=== PATIENT | female | born 1950 | race Two or more races ===

== ENCOUNTER 2023-04-15 05:15 | Day surgery (SDC) | payer OTHER ==
[~2023-04-15] VITALS: Ht 160 cm; Wt 72.6 kg
[~2023-04-15 05:15] MED LIST: GLIPIZIDE2.5 MG; LEXAPRO5 MG; LIPITOR20 MG; METFORMIN HCL1000 M1; NORVASC10 MG; SYNTHROID125 MCG; TENORETIC 1001 EACH; TRAVATAN Z5 ML
== END 2023-04-15 12:50 | disposition home or self-care (01) ==
LOC: SURH 05:15 → CIR.AMB 05:15 → O/R 05:15 → SURH 07:00 → EDSTATUS 10:45 → SURH 10:45 → CIR.AMB 12:50 → O/R 12:50
PROVIDERS: ATTEND Colon & Rectal Surgery
DX: D48.7 Neoplasm of uncertain behavior of other specified sites (principal); Z90.710 Acquired absence of both cervix and uterus; R19.07 Generalized intra-abdominal and pelvic swelling, mass and lump; K57.30 Diverticulosis of large intestine without perforation or abscess without bleeding

== ENCOUNTER 2024-01-19 11:30 | Day surgery (SDC) | payer OTHER ==
[2024-01-12 10:08] LABS: RH POSITIVE
[~2024-01-19 11:30] MED LIST changes: +MIRTAZAPINE15 M1 PO
[2024-01-19] MEDS ORDERED: CEFAZOLIN SODIUM 1,000 MG VIAL IV ONE (17:30)
[2024-01-19] MEDS ORDERED: METRONIDAZOLE/SODIUM CHLORIDE 500 MG/100 ML PIGGYBACK IV ONE (17:30)
[2024-01-19] MEDS ORDERED: POVIDONE-IODINE 118 ML BOTT TOP ONE (17:30)
[2024-01-19] MEDS ORDERED: MORPHINE SULFATE 4 MG/ML VIAL IV ONE ×2 (18:10→18:40)
== END 2024-01-19 19:45 | disposition home or self-care (01) ==
LOC: CIR.AMB 11:30
PROVIDERS: ATTEND Obstetrics & Gynecology Gynecologic Oncology
DX: K42.0 Umbilical hernia with obstruction, without gangrene (principal); D36.7 Benign neoplasm of other specified sites